=== PATIENT | female | born 1965 | race American Indian/Alaskan Native ===

== ENCOUNTER 2021-11-02 18:56 | Emergency (ER) | payer BC ==
[2021-11-02 21:13] LABS: Basophils # (Auto) 0.1 K/mm3 (0.0-0.1); Basophils % (Auto) 1.3 % (0.0-1.8); Eosinophils # (Auto) 0.4 K/mm3 (0.0-0.4); Eosinophils % (Auto) 4.6 % (0.0-4.3); Hematocrit 38.2 % (30.3-42.9); Hemoglobin 13.1 gm/dl (10.1-14.3); Lymphocytes # (Auto) 3.8 K/mm3 (1.2-5.4); Lymphocytes % (Auto) 46.7 % (13.4-35.0); Mean Corpuscular HGB Conc 34 % (30-34); Mean Corpuscular Volume 81 fl (79-97); Monocytes # (Auto) 0.5 K/mm3 (0.0-0.8); Monocytes % (Auto) 6.1 % (0.0-7.3); Platelet Count 423 K/mm3 (140-440)
--- NOTE | 2021-11-02 21:24 | XRay Report ---
CHEST 2 VIEWS INDICATION / CLINICAL INFORMATION: Chest Pain. COMPARISON: None available. FINDINGS: SUPPORT DEVICES: None. HEART / MEDIASTINUM: No significant abnormality. LUNGS / PLEURA: No significant pulmonary abnormality. No significant pleural effusion. No pneumothora x. ADDITIONAL FINDINGS: No significant additional findings. IMPRESSION: 1. No acute abnormality of the chest. Signer Name: Aamir Haji MD Signed: 11/02/2021 9:19 PM Workstation Name: [id number]
[2021-11-02 21:32] LABS: Alanine Aminotransferase 104 units/L (7-56); Albumin 4.2 g/dL (3.9-5); BUN/Creatinine Ratio 16; Blood Urea Nitrogen 14 mg/dL (7-17); Calcium 9.7 mg/dL (8.4-10.2); Hemolysis Index 2
[2021-11-03] MEDS ORDERED: MECLIZINE 25 MG TAB PO ONE (06:49)
[2021-11-03] MEDS ORDERED: hydrALAZINE 10 MG TAB PO ONE (06:50)
[2021-11-03] MEDS ORDERED: SODIUM CHLORIDE 0.9% 1000 ML 1,000 ML IV ONE (06:50)
--- NOTE | 2021-11-03 07:04 | Emergency Department Report ---
ED General Adult HPI - General Chief complaint: Chest Pain Stated complaint: DIZZINESS/CHEST PAIN/NUMBNESS IN HAND Time Seen by Provider: 11/03/21 06:48 Source: patient Mode of arrival: Ambulatory Limitations: No Limitations - History of Present Illness Initial comments: The patient presents to the emergency department with a chief complaint of dizziness that has been present for the last 3 weeks. Patient states the dizziness is more recognizable when she stands up. Patient also complains of having a headache with this dizziness as well. She was evaluated by her family nurse practitioner 2 weeks ago and told that her dizziness could be secondary to anxiety and was given antianxiety meds. Patient denies any chest pain but states that she has some fluttering and tightness at times. She denies abdominal pain or shortness of breath. -: Gradual Location: head Severity scale (0 -10): 3 Quality: other (Throbbing) Consistency: constant Improves with: none Worsens with: none Associated Symptoms: denies other symptoms Treatments Prior to Arrival: none - Related Data Previous Rx's Medication Instructions Recorded Last Taken Type Butalb/Acetamin/Caff 50-325-40 1 tab PO Q6HR PRN #24 tab 11/03/21 Unknown Rx [Fioricet] Meclizine [Antivert] 25 mg PO TID PRN #30 11/03/21 Unknown Rx hydrALAZINE [Apresoline TAB] 10 mg PO DAILY #30 11/03/21 Unknown Rx Allergies Allergy/AdvReac Type Severity Reaction Status Date / Time No Known Allergies Allergy Unverified 11/02/21 20:41 ED Review of Systems ROS: Stated complaint: DIZZINESS/CHEST PAIN/NUMBNESS IN HAND Other details as noted in HPI Comment: All other systems reviewed and negative Constitutional: denies: chills, fever Eyes: denies: eye pain, eye discharge, vision change ENT: denies: ear pain, throat pain Respiratory: denies: cough, shortness of breath, wheezing Cardiovascular: denies: chest pain, palpitations Endocrine: no symptoms reported Gastrointestinal: denies: abdominal pain, nausea, diarrhea Genitourinary: denies: urgency, dysuria, discharge Musculoskeletal: denies: back pain, joint swelling, arthralgia Skin: denies: rash, lesions Neurological: headache, other (Dizzy). denies: weakness, paresthesias Psychiatric: denies: anxiety, depression Hematological/Lymphatic: denies: easy bleeding, easy bruising ED Past Medical Hx - Social History Smoking Status: Unknown if ever smoked - Medications Home Medications: Home Medications Medication Instructions Recorded Confirmed Last Taken Type Butalb/Acetamin/Caff 50-325-40 1 tab PO Q6HR PRN #24 tab 11/03/21 Unknown Rx [Fioricet] Meclizine [Antivert] 25 mg PO TID PRN #30 11/03/21 Unknown Rx hydrALAZINE [Apresoline TAB] 10 mg PO DAILY #30 11/03/21 Unknown Rx ED Physical Exam - General Limitations: No Limitations General appearance: alert, in no apparent distress - Head Head exam: Present: atraumatic, normocephalic - Eye Eye exam: Present: normal appearance, PERRL, EOMI - ENT ENT exam: Present: mucous membranes moist - Neck Neck exam: Present: normal inspection - Respiratory Respiratory exam: Present: normal lung sounds bilaterally. Absent: respiratory distress - Cardiovascular Cardiovascular Exam: Present: regular rate, normal rhythm. Absent: systolic murmur, diastolic murmur, rubs, gallop - GI/Abdominal GI/Abdominal exam: Present: soft, normal bowel sounds. Absent: distended, tenderness - Extremities Exam Extremities exam: Present: normal inspection - Back Exam Back exam: Present: normal inspection - Neurological Exam Neurological exam: Present: alert, oriented X3, CN II-XII intact, other (Finger- nose, [id number], rapid hand movements intact; standing the patient did not recreate symptoms). Absent: motor sensory deficit - Psychiatric Psychiatric exam: Present: normal affect, normal mood - Skin Skin exam: Present: warm, dry, intact, normal color. Absent: rash ED Course Vital Signs 11/02/21 11/03/21 11/03/21 20:31 05:45 07:10 Temperature 98.0 F Pulse Rate 70 68 70 Respiratory 16 16 16 Rate Blood Pressure 165/83 167/78 Blood Pressure 166/91 [Left] O2 Sat by Pulse 96 100 Oximetry 11/03/21 11/03/21 11/03/21 07:12 07:37 07:50 Temperature Pulse Rate 67 65 Respiratory 13 Rate Blood Pressure 166/91 166/91 Blood Pressure [Left] O2 Sat by Pulse 100 100 Oximetry 11/03/21 11/03/2122 08:15 08:45 09:15 Temperature Pulse Rate 64 61 67 Respiratory 16 16 14 Rate Blood Pressure 166/91 153/77 143/77 Blood Pressure [Left] O2 Sat by Pulse 100 100 100 Oximetry ED Medical Decision Making - Lab Data Result diagrams: 11/02/21 20:58 11/02/21 20:58 Lab Results 11/02/21 11/02/21 11/02/21 Range/Units 20:58 20:58 23:55 WBC 8.1 (4.5-11.0) K/mm3 RBC 4.70 (3.65-5.03) M/mm3 Hgb 13.1 (10.1-14.3) gm/dl Hct 38.2 (30.3-42.9) % MCV 81 (79-97) fl MCH 28 (28-32) pg MCHC 34 (30-34) % RDW 15.0 (13.2-15.2) % Plt Count 423 (140-440) K/mm3 Lymph % (Auto) 46.7 H (13.4-35.0) % [place] % (Auto) 6.1 (0.0-7.3) % Eos % (Auto) 4.6 H (0.0-4.3) % Baso % (Auto) 1.3 (0.0-1.8) % Lymph # (Auto) 3.8 (1.2-5.4) K/mm3 [place] # (Auto) 0.5 (0.0-0.8) K/mm3 Eos # (Auto) 0.4 (0.0-0.4) K/mm3 Baso # (Auto) 0.1 (0.0-0.1) K/mm3 Seg Neutrophils % 41.3 (40.0-70.0) % Seg Neutrophils # 3.4 (1.8-7.7) K/mm3 Sodium 141 (137-145) mmol/L Potassium 3.3 L (3.6-5.0) mmol/L Chloride 98.5 (98-107) mmol/L Carbon Dioxide 31 H (22-30) mmol/L Anion Gap 15 mmol/L BUN 14 (7-17) mg/dL Creatinine 0.9 (0.6-1.2) mg/dL Estimated GFR > 60 ml/min BUN/Creatinine Ratio 16 % Glucose 96 (65-100) mg/dL Calcium 9.7 (8.4-10.2) mg/dL Total Bilirubin 0.90 (0.1-1.2) mg/dL AST 53 H (5-40) units/L ALT 104 H (7-56) units/L Alkaline Phosphatase 132 H (35-129) units/L Troponin T < 0.010 (0.00-0.029) ng/mL Total Protein 7.8 (6.3-8.2) g/dL Albumin 4.2 (3.9-5) g/dL Albumin/Globulin Ratio 1.2 % - Radiology Data Radiology results: report reviewed - Medical Decision Making Discussed results with patient Critical care attestation.: If time is entered above; I have spent that time in minutes in the direct care of this critically ill patient, excluding procedure time. ED Disposition Clinical Impression: Vertigo, Elevated liver enzymes, Hypertension Disposition: 01 HOME / SELF CARE / HOMELESS Is pt being admited?: No Does the pt Need Aspirin: No Condition: Stable Instructions: Dizziness, Hypertension, Adult, Hypertension (ED) Additional Instructions: return if worse Prescriptions: Meclizine [Antivert] 25 mg PO TID PRN #30 PRN Reason: Vertigo hydrALAZINE [Apresoline TAB] 10 mg PO DAILY #30 Butalb/Acetamin/Caff 50-325-40 [Fioricet] 1 tab PO Q6HR PRN #24 tab PRN Reason: Headache Referrals: CECILLE VIVEROS MD [Staff Physician] - 3-5 Days Time of Disposition: 09:23
[2021-11-03 09:35] VITALS: BP 143/77
--- NOTE | 2021-11-04 07:45 | Cat Scan Report ---
CT HEAD WITHOUT CONTRAST INDICATION / CLINICAL INFORMATION: Dizziness / Headache. TECHNIQUE: Axial imaging performed from the skull apex through the skull base without the use of cont rast. Sagittal and coronal reformatted images. All CT scans at this location are performed using CT dose reduction for ALARA by means of automated exposure control. COMPARISON: None available. FINDINGS: CEREBRAL PARENCHYMA: No significant abnormality. No acute territorial infarct. HEMORRHAGE: None. EXTRA-AXIAL SPACES: Normal in size and morphology for the patient's age. VENTRICULAR SYSTEM: Normal in size and morphology for the patient's age. MIDLINE SHIFT OR HERNIATION: None. CEREBELLUM / BRAINSTEM: No significant abnormality. CALVARIUM: No significant abnormality. ORBITS: Normal as visualized. PARANASAL SINUSES / MASTOID AIR CELLS: Normal as visualized. SOFT TISSUES of HEAD: No significant abnormality. ADDITIONAL FINDINGS: None. IMPRESSION: No acute intracranial abnormality. Cranial CT scan within normal limits. Signer Name: Mario Ho Jr, MD Signed: 11/03/2021 7:34 AM Workstation Name: [id number]
--- NOTE | 2021-11-04 17:37 | Electrocardiograph Report ---
[facility] Test Date: 2021-11-02 Test Time: 20:47:31 Pat Name: BRYANNA LOPEZ Department: Room: Gender: F Laborer Rags: AXEL : 1965 Requested By: JUAN ANTONIO IBARRA Order Number: [id number] Reading MD: Souleymane Mattson Measurements Intervals [place] Rate: 70 P: 62 MN: 198 QRS: 27 QRSD: 88 T: 32 QT: 399 QTc: 430 Interpretive Statements Sinus rhythm No previous ECG available for comparison Electronically Signed On 11-04-2021 17:37:27 EDT by Souleymane Mattson
== END 2021-11-03 09:41 | disposition home or self-care (01) ==
LOC: ED 18:56
DX: R42 Dizziness and giddiness (principal); R74.01 Elevation of levels of liver transaminase levels; I10 Essential (primary) hypertension
CPT/HCPCS: 36415; 70450; 71046; 80053; 84484; 85025; 93005; 96360; 99284; J7030